=== PATIENT | female | born 1960 | race Caucasian/White ===

== ENCOUNTER 2022-12-13 19:44 | Emergency (ER) | payer BC, OTHER ==
[~2022-12-13] VITALS: Ht 170.2 cm; Wt 73.0 kg
--- NOTE | 2022-12-13 19:55 | NUR ---
JESSICA FROM HOME WITH CC OF N/V WITH DIZZINESS AFTER SHE FELT THAT SOME THING POPPING ON HER JAVED EARS. PT RECEIVED ZOFRAN 4MG IV CAP BLOCKER, IVC G2O L AC. PT A/OX4. TOLERATING R/A WELL WITH NO RESP DISTRESS. CONNECTED PT TO POX AND MONITOR. SAFETY MEASURES IN PLACE.
[2022-12-13] MEDS ORDERED: MECLIZINE HCL 12.5 MG TABLET PO ONE (20:00)
[2022-12-13] MEDS ORDERED: IV NS 0.9% 1,000 ML BAG IV ONE (20:00)
[2022-12-13] MEDS ORDERED: MECLIZINE HCL 25 MG TABLET ONE (20:01)
--- NOTE | 2022-12-13 20:12 | NUR ---
BLOOD COLLECTED AND SENT TO LAB
--- NOTE | 2022-12-13 20:13 | NUR ---
PT NOT ABLE TO COLLECT URINE AT THIS TIMEL; WILL TRY AGAIN LATER
[2022-12-13 20:24] LABS: BASOPHILS # (AUTO) 0.1 K/uL (0.0-0.2); HEMATOCRIT 37 % (33-45); HEMOGLOBIN 12.4 g/dL (11.5-14.8); LYMPHOCYTES # (AUTO) 1.9 K/uL (0.8-4.8); LYMPHOCYTES % (AUTO) 37.4 % (20.0-44.0); MEAN CORPUSCULAR HGB CONC 33 g/dl (31.0-36.0); MEAN CORPUSCULAR VOLUME 98 fL (82-100); MONOCYTES # (AUTO) 0.4 K/uL (0.1-1.30); MONOCYTES % (AUTO) 7.9 % (2.0-12.0); NEUTROPHILS # (AUTO) 2.7 K/uL (1.8-8.9); NEUTROPHILS % (AUTO) 51.7 % (43.0-81.0); PLATELET COUNT (AUTO) 258 K/uL (150-450); RED BLOOD CELL COUNT(AUTO) 3.83 MIL/uL (4.0-5.2); WHITE BLOOD COUNT (AUTO) 5.2 K/uL (4.3-11.0)
[2022-12-13 20:39] LABS: CALCIUM, SERUM 8.7 mg/dL (8.5-10.1); CARBON DIOXIDE 27 mmol/L (21-32); CHLORIDE 107 mmol/L (98-107); CREATININE 0.8 mg/dL (0.6-1.3); GLUCOSE 112 mg/dL (74-106); POTASSIUM 3.4 mmol/L (3.5-5.1); SODIUM SERUM 142 mmol/L (136-145); UREA NITROGEN, BLOOD 16 mg/dL (7-18)
--- NOTE | 2022-12-13 20:41 | NUR ---
PT TAKEN TO CT VIA [facility]
[2022-12-13] MEDS ORDERED: POTASSIUM CHLORIDE 20 MEQ TAB.PRT.SR PO ONE ×2 (21:00→21:11)
--- NOTE | 2022-12-13 21:10 | NUR ---
URINE COLLECTED AND SENT TO LAB
[2022-12-13] MEDS ORDERED: MECL-159 PO (21:54)
[2022-12-13] MEDS ORDERED: DIAZ2TAB3 PO (21:54)
[2022-12-13 22:00] LABS: BILIRUBIN,URINE NEGATIVE (NEGATIVE); COLOR,URINE YELLOW (YELLOW); LEUKOCYTE ESTERASE ,URINE 1+ (NEGATIVE); NITRITE, URINE NEGATIVE (NEGATIVE); PH,URINE 6.5 (5.0-8.0); PROTEIN,URINE NEGATIVE (NEGATIVE); UGLUCOSE NEGATIVE (NEGATIVE); UROBILINOGEN,URINE 0.2 EU/dL (0.2)
[2022-12-13] MEDS ORDERED: DIAZEPAM 5 MG TABLET PO ONE (22:00)
[2022-12-13 22:02] LABS: BACTERIA,URINE 1+ /HPF (None Seen); MUCUS,URINE Few /LPF (None Seen); SQUAMOUS EPITHELIAL CELL,UR 0-2 /HPF (None Seen)
--- NOTE | 2022-12-13 22:03 | NUR ---
Patient discharged to home in stable condition. Written and verbal after care instructions given. Patient verbalizes understanding of instruction. IV removed. Catheter intact and site benign. Pressure and 4x4 applied to site. No bleeding noted.
[2022-12-13 22:04] VITALS: BP 110/62
== END 2022-12-13 22:16 | disposition home or self-care (01) ==
LOC: ER 19:50
DX: R42 Dizziness and giddiness (principal); E11.9 Type 2 diabetes mellitus without complications; E03.9 Hypothyroidism, unspecified; Z79.899 Other long term (current) drug therapy; Z88.0 Allergy status to penicillin; Z88.2 Allergy status to sulfonamides
CPT/HCPCS: 99285; 96360; 70450; 71045; 93005; 85025; 80048; 87086; 81001; 36415; 84484; J8597; J7030